=== PATIENT | female | born 1975 | race Caucasian/White ===

== ENCOUNTER 2018-01-02 07:30 | Day surgery (SDC) | payer OTHER ==
[2017-12-29 10:50] LABS: BILIRUBIN,URINE NEGATIVE (NEGATIVE); BLOOD, URINE NEGATIVE (NEGATIVE); CLARITY/URINE CLEAR (CLEAR); COLOR,URINE YELLOW (YELLOW); GLUCOSE,URINE NEGATIVE (NEGATIVE); KETONES,URINE NEGATIVE (NEGATIVE); LEUKOCYTE ESTERASE ,URINE TRACE (NEGATIVE); NITRITE, URINE NEGATIVE (NEGATIVE); PROTEIN URINE NEGATIVE (NEGATIVE); UROBILINOGEN,URINE 0.2 (0.2-1.0)
[2017-12-29 11:05] LABS: HCG,QUAL RESULT NEGATIVE (NEGATIVE)
[2017-12-29 11:06] LABS: CALCIUM 9.2 mg/dL (8.4-11.0); CREATININE 0.72 mg/dL (0.55-1.30); POTASSIUM 3.5 mmol/L (3.5-5.1)
[2017-12-29 11:08] LABS: BASOPHILS % (AUTO) 0.6 % (0.0-2.0); EOSINOPHILS # (AUTO) 0.2 K/uL (0.0-0.4); EOSINOPHILS % (AUTO) 2.8 % (0.0-4.0); HEMATOCRIT 37.6 % (36-48); HEMOGLOBIN 11.9 g/dL (12.0-16.0); LYMPHOCYTES # (AUTO) 1.9 K/uL (1.0-5.5); LYMPHOCYTES % (AUTO) 31.6 % (20.5-51.5); MEAN CORPUSCULAR HEMOGLOBIN 29 pg (27-31); MEAN CORPUSCULAR HGB CONC 32 % (32-36); MEAN CORPUSCULAR VOLUME 90 fL (79.0-98.0); MONOCYTES # (AUTO) 0.5 K/uL (0.0-1.0); MONOCYTES % (AUTO) 9.2 % (1.7-9.3); NEUTROPHILS # (AUTO) 3.3 K/uL (1.8-7.7); NEUTROPHILS % (AUTO) 55.8 % (40.0-70.0); PLATELET COUNT (AUTO) 280 K/uL (130-430); RED BLOOD CELL COUNT(AUTO) 4.18 MIL/uL (4.2-6.2); RED CELL DISTRIBUTION WIDTH 12.4 % (9.0-15.0); WHITE BLOOD COUNT (AUTO) 5.9 K/uL (4.8-10.8)
[2017-12-29 11:11] LABS: BACTERIA,URINE RARE /HPF (None Seen); RBC,URINE 0-3 /HPF (0-3)
[2017-12-29 11:12] LABS: MUCUS,URINE None Seen /LPF (None Seen); YEAST,URINE None Seen /HPF (None Seen)
[~2018-01-02] VITALS: Ht 152.4 cm; Wt 67.1 kg
[2018-01-02] MEDS ORDERED: KETOROLAC TROMETHAMINE 30 MG VIAL IVP PRN (10:15)
[2018-01-02] MEDS ORDERED: ONDANSETRON HCL 4 MG/2 ML VIAL IVP PRN ×2 (10:15→11:30)
[2018-01-02] MEDS ORDERED: fentaNYL CITRATE/PF 100 MCG/2 ML AMP IVP PRN ×2 (10:15)
[2018-01-02] MEDS ORDERED: LR 1,000 ML IV.SOLN IV ONE (10:30)
[2018-01-02] MEDS ORDERED: NS 1000 ML IV.SOLN IV ONE (10:30)
[2018-01-02] MEDS ORDERED: fentaNYL CITRATE/PF 100 MCG/2 ML AMP IVP ONE (10:30)
[2018-01-02] MEDS ORDERED: SEVOFLURANE 15 MIN GAS INH ONE (10:30)
[2018-01-02] MEDS ORDERED: KETOROLAC TROMETHAMINE 30 MG VIAL IVP ONE (10:30)
[2018-01-02] MEDS ORDERED: PROPOFOL 200MG/ 20ML VIAL (DIPRIVAN) IV ONE (10:30)
[2018-01-02] MEDS ORDERED: ONDANSETRON HCL 4 MG/2 ML VIAL IVP ONE (10:30)
[2018-01-02] MEDS ORDERED: MIDAZOLAM HCL 5 MG/5 ML VIAL IVP ONE (10:30)
[2018-01-02] MEDS ORDERED: IBUPROFEN 800 MG TABLET PO PRN (11:30)
[2018-01-02] MEDS ORDERED: MIDAZOLAM HCL 2 MG/2 ML VIAL (VERSED) ONE (11:52)
[2018-01-02] MEDS ORDERED: MIDAZOLAM HCL 2 MG/2 ML VIAL (VERSED) IVP ONE (12:00)
[2018-01-02 13:17] VITALS: BP_SYST 124
== END 2018-01-02 14:10 | disposition home or self-care (01) ==
LOC: SDS 07:30 → SMU 07:30 → SDS 14:10
PROVIDERS: ATTEND Obstetrics & Gynecology
DX: N84.0 Polyp of corpus uteri (principal); D62 Acute posthemorrhagic anemia; G43.909 Migraine, unspecified, not intractable, without status migrainosus; F41.9 Anxiety disorder, unspecified; Z79.899 Other long term (current) drug therapy; Z90.49 Acquired absence of other specified parts of digestive tract; Z82.49 Family history of ischemic heart disease and other diseases of the circulatory system; Z80.3 Family history of malignant neoplasm of breast
CPT/HCPCS: 36415; 58563; 80048; 81000; 84703; 85025; 88305; J1885; J2250; J2405; J2704; J3010; J3465; J7030; J7120

== ENCOUNTER 2019-02-19 06:18 | Inpatient (IN) | payer OTHER ==
[2019-02-16 10:51] LABS: BASOPHILS % (AUTO) 0.5 % (0.0-2.0); EOSINOPHILS # (AUTO) 0.4 K/uL (0.0-0.4); EOSINOPHILS % (AUTO) 5.1 % (0.0-4.0); HEMATOCRIT 39.2 % (36-48); HEMOGLOBIN 13.5 g/dL (12.0-16.0); LYMPHOCYTES # (AUTO) 1.6 K/uL (1.0-5.5); LYMPHOCYTES % (AUTO) 20.8 % (20.5-51.5); MEAN CORPUSCULAR HEMOGLOBIN 32 pg (27-31); MEAN CORPUSCULAR HGB CONC 34 % (32-36); MEAN CORPUSCULAR VOLUME 92 fL (79.0-98.0); MONOCYTES # (AUTO) 0.5 K/uL (0.0-1.0); MONOCYTES % (AUTO) 6.8 % (1.7-9.3); NEUTROPHILS # (AUTO) 5.2 K/uL (1.8-7.7); NEUTROPHILS % (AUTO) 66.8 % (40.0-70.0); PLATELET COUNT (AUTO) 226 K/uL (130-430); RED BLOOD CELL COUNT(AUTO) 4.27 MIL/uL (4.2-6.2); RED CELL DISTRIBUTION WIDTH 13.1 % (9.0-15.0); WHITE BLOOD COUNT (AUTO) 7.9 K/uL (4.8-10.8)
[2019-02-16 11:10] LABS: BILIRUBIN,URINE NEGATIVE (NEGATIVE); BLOOD, URINE 3+ (NEGATIVE); CLARITY/URINE SL CLOUDY (CLEAR); COLOR,URINE YELLOW (YELLOW); GLUCOSE,URINE NEGATIVE (NEGATIVE); KETONES,URINE NEGATIVE (NEGATIVE); LEUKOCYTE ESTERASE ,URINE 1+ (NEGATIVE); NITRITE, URINE NEGATIVE (NEGATIVE); PROTEIN URINE NEGATIVE (NEGATIVE); UROBILINOGEN,URINE 0.2 (0.2-1.0)
[2019-02-16 11:16] LABS: CALCIUM 8.6 mg/dL (8.4-11.0); CREATININE 0.78 mg/dL (0.55-1.30)
[2019-02-16 11:34] LABS: BACTERIA,URINE RARE /HPF (None Seen); RBC,URINE 20-50 /HPF (0-3)
[~2019-02-19] VITALS: Ht 152.4 cm; Wt 63.5 kg
[2019-02-19] MEDS ORDERED: CEFAZOLIN SOD 1 GM in D5W 50 ML IV ONE (07:00)
[2019-02-19] MEDS ORDERED: GLYCOPYRROLATE 0.2 MG/ML VIAL IJ ONE (07:20)
[2019-02-19] MEDS ORDERED: LR 1,000 ML IV.SOLN IV ONE (07:20)
[2019-02-19] MEDS ORDERED: ROCURONIUM BROMIDE 10 MG/ML (ZEMURON) IV ONE (07:20)
[2019-02-19] MEDS ORDERED: PROPOFOL 200MG/ 20ML VIAL (DIPRIVAN) IV ONE (07:20)
[2019-02-19] MEDS ORDERED: ROPIVACAINE HCL/PF 5 MG/ML 0.5% 30 ML VIAL EP ONE (07:20)
[2019-02-19] MEDS ORDERED: KETOROLAC TROMETHAMINE 30 MG VIAL IVP ONE (07:20)
[2019-02-19] MEDS ORDERED: SEVOFLURANE 15 MIN GAS INH ONE (07:20)
[2019-02-19] MEDS ORDERED: MIDAZOLAM HCL 5 MG/5 ML VIAL IVP ONE (07:20)
[2019-02-19] MEDS ORDERED: DEXAMETHASONE SOD PHOSPHATE 4 MG/ML VIAL IVP ONE (07:20)
[2019-02-19] MEDS ORDERED: NS 1000 ML IV.SOLN IV ONE (07:20)
[2019-02-19] MEDS ORDERED: ONDANSETRON HCL 4 MG/2 ML VIAL IVP ONE (07:20)
[2019-02-19] MEDS ORDERED: LR 1,000 ML IV SCH (09:43)
[2019-02-19] MEDS ORDERED: HYDROmorphone 1 MG INJ. 1 MG/ML AMPUL IVP PRN (09:45)
[2019-02-19] MEDS ORDERED: MEPERIDINE HCL/PF 25 MG/ML DISP.SYRIN IVP PRN (09:45)
[2019-02-19] MEDS ORDERED: HYDROmorphone 2 MG/ML VIAL IVP PRN ×2 (09:45)
[2019-02-19] MEDS ORDERED: OXYCODONE/ACETAMINOPHEN 5-325 TABLET PO PRN ×2 (11:00)
[2019-02-19] MEDS ORDERED: ONDANSETRON HCL 4 MG/2 ML VIAL IM PRN (11:00)
[2019-02-19] MEDS ORDERED: ONDANSETRON HCL 4 MG/2 ML VIAL IVP PRN (11:00)
[2019-02-19] MEDS ORDERED: IBUPROFEN 800 MG TABLET PO PRN ×2 (11:00→17:15)
[2019-02-19] MEDS ORDERED: SUGAMMADEX SODIUM 200 MG/2 ML VIAL IV ONE ×2 (12:30→12:45)
[2019-02-19] MEDS ORDERED: OXYCODONE/ACETAMINOPHEN 5-325 TABLET ONE (13:33)
[2019-02-19 16:33] LABS: HEMOGLOBIN 11.2 g/dL (12.0-16.0)
[2019-02-19] MEDS: OXYCODONE/ACETAMINOPHEN 5-325 TABLET PO PRN (18:10)
[2019-02-19 18:17] VITALS: BP_SYST 124
[2019-02-19 20:00] VITALS: BP_SYST 127
[2019-02-20 00:47] VITALS: BP_SYST 118
[2019-02-20 04:00] VITALS: BP_SYST 120
[2019-02-20] MEDS: OXYCODONE/ACETAMINOPHEN 5-325 TABLET PO PRN ×2 (05:13→12:48)
[2019-02-20 06:48] LABS: HEMATOCRIT 31.6 % (36-48); HEMOGLOBIN 10.7 g/dL (12.0-16.0)
[2019-02-20 08:10] VITALS: BP_SYST 115
[2019-02-20] MEDS ORDERED: SUMAtriptan SUCCINATE 50 MG TABLET PO PRN ×2 (09:30→11:28)
[2019-02-20 12:35] VITALS: BP_SYST 118
[2019-02-20 14:21] VITALS: BP_SYST 118
== END 2019-02-20 15:00 | disposition home or self-care (01) | DRG 743 ==
LOC: SMU 06:18 → SDS 06:18 → SMU 17:15 → SDS 19:48 → SMU 19:49 → UNDOFXSDCRRACCOM 19:50 → SMU 02-20 11:59 → SDS 02-20 11:59
PROVIDERS: ADMIT Obstetrics & Gynecology; ATTEND Obstetrics & Gynecology
PROC: 0UT74ZZ Resection of Bilateral Fallopian Tubes, Percutaneous Endoscopic Approach (ICD-10-PCS; 2019-02-19)
PROC: 8E0W4CZ Robotic Assisted Procedure of Trunk Region, Percutaneous Endoscopic Approach (ICD-10-PCS; 2019-02-19)
PROC: 0UT94ZZ Resection of Uterus, Percutaneous Endoscopic Approach (ICD-10-PCS; principal; 2019-02-19 07:30)
DX: N92.0 Excessive and frequent menstruation with regular cycle (principal); G43.109 Migraine with aura, not intractable, without status migrainosus; Z90.49 Acquired absence of other specified parts of digestive tract; Z82.61 Family history of arthritis; Z82.62 Family history of osteoporosis; Z82.3 Family history of stroke; Z82.49 Family history of ischemic heart disease and other diseases of the circulatory system
CPT/HCPCS: 36415; 80048; 81000-TC; 84703; 85018-TC; 85025; 86886; 86900; 86901; 87086; 88307; C9399; E0190; J0690; J1100; J1885; J2250; J2405; J2704; J3490; J7030; J7060; J7120